=== PATIENT | male | born 1950 | race Two or more races ===

== ENCOUNTER → 2022-03-09 | Outpatient (CLI) | payer OTHER | END | disposition home or self-care (01) | LOC: RT 08:46 | PROVIDERS: ATTEND Internal Medicine Pulmonary Disease | DX: J44.9 Chronic obstructive pulmonary disease, unspecified (principal); F17.210 Nicotine dependence, cigarettes, uncomplicated | CPT/HCPCS: 94060; 94727; 94729 ==

== ENCOUNTER → 2022-03-30 | Outpatient (CLI) | payer OTHER ==
[2022-03-30 12:15] LABS: Basophils # (auto) 0.1 10 ^3/uL (0-0.2); Basophils % (auto) 1.5 % (0.0-2.0); Eosinophils # (auto) 0.1 10 ^3/uL (0-0.8); Eosinophils % (auto) 2.2 % (0.0-7.0); Hematocrit 44.2 % (41.0-53.0); Lymphocytes # (auto) 0.9 10 ^3/uL (0.4-5.4); Lymphocytes % (auto) 16.4 % (10.0-50.0); Mean Corpuscular Hemoglobin 32.9 pg (28.0-32.0); Mean Corpuscular Hgb Conc. 33.9 g/dL (32.0-36.0); Mean Corpuscular Volume 97.3 fL (80.0-100.0); Monocytes # (auto) 0.6 10 ^3/uL (0-1.3); Monocytes % (auto) 11.3 % (0.0-12.0); Neutrophils # (auto) 3.7 10 ^3/uL (1.6-8.6); Neutrophils % (auto) 68.6 % (37.0-80.0); Nucleated Red Blood Cells % 0.1 %; Red Blood Cells 4.55 10^6/uL (4.5-5.90); Red Cell Distribution Width 14.7 % (11.8-14.3); White Blood Cell 5.4 10^3/uL (4.4-10.8)
[2022-03-30 12:51] LABS: Potassium 3.9 mmol/L (3.5-5.1)
[2022-03-30 13:01] LABS: Albumin 3.2 g/dL (3.4-5.0); BUN/Creatinine Ratio 18.1; Bilirubin, Total 4.1 mg/dL (0.2-1.0); Calcium 8.7 mg/dL (8.5-10.1)
== END | disposition home or self-care (01) ==
LOC: LAB 11:53
PROVIDERS: ATTEND Internal Medicine
DX: E11.42 Type 2 diabetes mellitus with diabetic polyneuropathy (principal); K70.30 Alcoholic cirrhosis of liver without ascites; I10 Essential (primary) hypertension; K21.9 Gastro-esophageal reflux disease without esophagitis; N40.0 Benign prostatic hyperplasia without lower urinary tract symptoms
CPT/HCPCS: 36415; 80053; 80061; 83036; 84153; 84443; 85025

== ENCOUNTER → 2022-04-05 | Outpatient (CLI) | payer OTHER | END | disposition home or self-care (01) | LOC: LAB 11:35 | PROVIDERS: ATTEND Internal Medicine | DX: E11.42 Type 2 diabetes mellitus with diabetic polyneuropathy (principal); K70.30 Alcoholic cirrhosis of liver without ascites | CPT/HCPCS: 82270 ==

== ENCOUNTER → 2022-05-26 | Outpatient (CLI) | payer OTHER ==
[2022-05-26 12:24] LABS: Basophils # (auto) 0 10 ^3/uL (0-0.2); Eosinophils # (auto) 0.3 10 ^3/uL (0-0.8); Lymphocytes # (auto) 1.1 10 ^3/uL (0.4-5.4); Monocytes # (auto) 0.6 10 ^3/uL (0-1.3); Nucleated Red Blood Cells % 0.1 %
[2022-05-26 12:26] LABS: Eosinophils % (auto) 6.4 % (0.0-7.0); Hematocrit 44.7 % (41.0-53.0); Hemoglobin 15.2 g/dL (13.5-17.5); Lymphocytes % (auto) 22.6 % (10.0-50.0); Mean Corpuscular Hemoglobin 33.8 pg (28.0-32.0); Mean Corpuscular Hgb Conc. 34.1 g/dL (32.0-36.0); Mean Corpuscular Volume 99.1 fL (80.0-100.0); Monocytes % (auto) 11.6 % (0.0-12.0); Neutrophils # (auto) 2.8 10 ^3/uL (1.6-8.6); Neutrophils % (auto) 58.4 % (37.0-80.0); Red Blood Cells 4.51 10^6/uL (4.5-5.90); Red Cell Distribution Width 14.7 % (11.8-14.3); White Blood Cell 4.8 10^3/uL (4.4-10.8)
[2022-05-26 12:51] LABS: Albumin 3.2 g/dL (3.4-5.0); Calcium 8.5 mg/dL (8.5-10.1); Potassium 3.6 mmol/L (3.5-5.1)
[2022-05-26 12:52] LABS: BUN/Creatinine Ratio 19.7
[2022-05-26 12:54] LABS: Bilirubin, Total 3.2 mg/dL (0.2-1.0); Total Protein 6.4 g/dL (6.4-8.2)
[2022-05-26 13:48] LABS: INR 1.73 (0.9-1.15)
== END | disposition home or self-care (01) ==
LOC: LAB 11:58
PROVIDERS: ATTEND Internal Medicine Gastroenterology
DX: R94.5 Abnormal results of liver function studies (principal); K74.60 Unspecified cirrhosis of liver
CPT/HCPCS: 36415; 80053; 82105; 82728; 85025; 85610; 86038; 86803; 87340

== ENCOUNTER → 2022-05-31 | Outpatient (CLI) | payer OTHER | END | disposition home or self-care (01) | LOC: Rad HDHVI 15:46 | PROVIDERS: ATTEND Internal Medicine Cardiovascular Disease | DX: I10 Essential (primary) hypertension (principal); R00.2 Palpitations | CPT/HCPCS: 93306 ==

== ENCOUNTER → 2022-06-08 | Outpatient (CLI) | payer OTHER ==
[~2022-06-08] VITALS: Ht 182.9 cm; Wt 86.2 kg
[~2022-06-08] MED LIST: ADENOSINE 72 MG in GIVE UN-DILUTED 0 ML IV ONE; ADENOSINE 90 MG/30 ML INJ IV ONE
== END | disposition home or self-care (01) ==
LOC: Rad HDHVI 08:28
PROVIDERS: ATTEND Internal Medicine Cardiovascular Disease
DX: Z01.810 Encounter for preprocedural cardiovascular examination (principal); I10 Essential (primary) hypertension; E78.5 Hyperlipidemia, unspecified; R06.02 Shortness of breath; I25.2 Old myocardial infarction; R06.00 Dyspnea, unspecified; I35.0 Nonrheumatic aortic (valve) stenosis; R00.2 Palpitations; Z79.899 Other long term (current) drug therapy
CPT/HCPCS: 78452; 93005; 96374; 96375; A9500; J0153

== ENCOUNTER 2022-09-07 05:11 | Emergency (ER) | payer OTHER ==
[~2022-09-07] VITALS: Ht 182.9 cm; Wt 91.0 kg
[2022-09-07 06:17] LABS: Basophils # (auto) 0.1 10 ^3/uL (0-0.2); Hemoglobin 13.9 g/dL (13.5-17.5); Lymphocytes % (auto) 20.4 % (10.0-50.0); Monocytes # (auto) 0.9 10 ^3/uL (0-1.3); Neutrophils # (auto) 2.2 10 ^3/uL (1.6-8.6); White Blood Cell 4.8 10^3/uL (4.4-10.8)
[2022-09-07 06:20] LABS: Basophils % (auto) 2.5 % (0.0-2.0); Eosinophils # (auto) 0.6 10 ^3/uL (0-0.8); Eosinophils % (auto) 13.1 % (0.0-7.0); Hematocrit 38.7 % (41.0-53.0); Mean Corpuscular Hemoglobin 34.1 pg (28.0-32.0); Mean Corpuscular Hgb Conc. 35.9 g/dL (32.0-36.0); Monocytes % (auto) 17.8 % (0.0-12.0); Neutrophils % (auto) 46.2 % (37.0-80.0); Nucleated Red Blood Cells % 0.2 %; Red Blood Cells 4.08 10^6/uL (4.5-5.90); Red Cell Distribution Width 15.5 % (11.8-14.3)
[2022-09-07 06:49] LABS: Albumin 2.9 g/dL (3.4-5.0); BUN/Creatinine Ratio 18.8; Bilirubin, Total 3.9 mg/dL (0.2-1.0); Calcium 7.9 mg/dL (8.5-10.1); Potassium 3.6 mmol/L (3.5-5.1); Total Protein 5.4 g/dL (6.4-8.2)
[2022-09-07 12:15] VITALS: BP 127/63
== END 2022-09-07 12:18 | disposition home or self-care (01) ==
LOC: ER 05:11
DX: R22.43 Localized swelling, mass and lump, lower limb, bilateral (principal); K21.9 Gastro-esophageal reflux disease without esophagitis; N40.0 Benign prostatic hyperplasia without lower urinary tract symptoms
CPT/HCPCS: 36415; 71045; 80053; 83880; 84484; 85025; 93005; 93970

== ENCOUNTER → 2022-09-10 | Outpatient (CLI) | payer OTHER ==
[2022-09-10 11:03] LABS: BUN/Creatinine Ratio 19.6; Calcium 8.2 mg/dL (8.5-10.1); Potassium 3.7 mmol/L (3.5-5.1)
[2022-09-10 11:10] LABS: Micro Albumin 17.7 mg/L (0-30.0)
== END | disposition home or self-care (01) ==
LOC: LAB 09:51
PROVIDERS: ATTEND Internal Medicine
DX: E11.9 Type 2 diabetes mellitus without complications (principal); M17.10 Unilateral primary osteoarthritis, unspecified knee
CPT/HCPCS: 36415; 80048; 82043; 82570; 83036

== ENCOUNTER 2022-09-22 18:56 | Inpatient (IN) | payer OTHER ==
[~2022-09-22] VITALS: Ht 188 cm; Wt 82.9 kg
[2022-09-22 21:54] LABS: Hematocrit 38.4 % (41.0-53.0); Hemoglobin 13.8 g/dL (13.5-17.5); Mean Corpuscular Hemoglobin 34.3 pg (28.0-32.0); Mean Corpuscular Hgb Conc. 35.9 g/dL (32.0-36.0); Mean Corpuscular Volume 95.6 fL (80.0-100.0); Red Blood Cells 4.02 10^6/uL (4.5-5.90); Red Cell Distribution Width 15.8 % (11.8-14.3); White Blood Cell 6.2 10^3/uL (4.4-10.8)
[2022-09-22 21:56] LABS: Basophils % (manual) 0 (0.0-2.0); Blast Cells 0; Metamyelocytes % 0; Myelocytes % 0; Promyelocytes % 0; Reactive Lymphocytes 0
[2022-09-22 22:05] LABS: Albumin 2.8 g/dL (3.4-5.0); BUN/Creatinine Ratio 18.5 (10.0-20.0); Potassium 3.4 mmol/L (3.5-5.1)
[2022-09-22 22:07] LABS: Bilirubin, Total 4.1 mg/dL (0.2-1.0); Total Protein 5.7 g/dL (6.4-8.2)
[2022-09-22 22:55] LABS: Urine Bacteria NONE SEEN /hpf (None Seen); Urine Blood 3+ /uL (Negative); Urine Mucus FEW (None Seen); Urine Specific Gravity 1.009 (1.001-1.035); Urine WBC 11 /hpf (0 - 3); Urine WBC Clumps PRESENT /hpf (None Seen)
[2022-09-22 23:01] LABS: Band Neutrophils % (manual) 2; Eosinophils % (manual) 15 (0-7); Lymphocytes % (manual) 16 (10.0-50.0); Monocytes % (manual) 9 (0-12)
[2022-09-23] MEDS ORDERED: HYDROcodone-ACET 5/325MG TAB PO PRN
[2022-09-23] MEDS ORDERED: FUROSEMIDE 20 MG/2 ML VIAL IV ONE
[2022-09-23] MEDS ORDERED: MORPHINE SULFATE INJ 2 MG/ml SYRG IV PRN
[2022-09-23] MEDS ORDERED: ACETAMINOPHEN 325 MG TAB PO PRN
[2022-09-23] MEDS ORDERED: DOCUSATE SOD 100 MG CAP PO PRN
[2022-09-23] MEDS ORDERED: PANTOPRAZOLE 40 MG/10 ML VIAL INJ IV ONE (00:15)
[2022-09-23] MEDS ORDERED: LISI-716 PO (00:25)
[2022-09-23] MEDS ORDERED: TAMS0.4C36 PO (00:25)
[2022-09-23 00:40] LABS: INR 1.72 (0.9-1.15); Partial Thromboplastin Time 32.2 sec (24.6-33.4)
[2022-09-23 00:59] LABS: Alcohol, Urine < 3.0 mg/dL (0-10); Amphetamine Screen, Urine NEGATIVE (NEGATIVE); Barbiturate Scree,Urine NEGATIVE (NEGATIVE); Benzodiazephine Screen, Urine NEGATIVE (NEGATIVE); Cannabinoid Screen, Urine NEGATIVE (NEGATIVE); Cocaine Screen, Urine NEGATIVE (NEGATIVE); Opiate Scree,Urine NEGATIVE (NEGATIVE); Phencyclidine Screen, Urine NEGATIVE (NEGATIVE)
[2022-09-23 01:18] LABS: Cholesterol 108 mg/dL (< 200); HDL Cholesterol 45 mg/dL (40-59); LDL Cholesterol 46 mg/dL (< 100); Triglycerides 127 mg/dL (< 150)
[2022-09-23 08:00] LABS: Hemoglobin 14.7 g/dL (13.5-17.5); Red Cell Distribution Width 15.7 % (11.8-14.3); White Blood Cell 6.5 10^3/uL (4.4-10.8)
[2022-09-23 08:02] LABS: Hematocrit 41.6 % (41.0-53.0); Mean Corpuscular Hemoglobin 34.2 pg (28.0-32.0); Mean Corpuscular Hgb Conc. 35.2 g/dL (32.0-36.0); Mean Corpuscular Volume 97.3 fL (80.0-100.0); Red Blood Cells 4.28 10^6/uL (4.5-5.90)
[2022-09-23 08:16] LABS: Band Neutrophils % (manual) 0; Basophils % (manual) 0 (0.0-2.0); Blast Cells 0; Myelocytes % 0; Promyelocytes % 0; Reactive Lymphocytes 0
[2022-09-23 08:43] LABS: Anion Gap 6 (5-15); Blood Urea Nitrogen 9 mg/dL (7-18); Carbon Dioxide 23 mmol/L (21-32); Chloride 112 mmol/L (98-107); Glucose 83 mg/dL (74-106); Potassium 3.4 mmol/L (3.5-5.1); Sodium 141 mmol/L (136-145)
[2022-09-23 08:44] LABS: Alanine Aminotransferase 50 U/L (16-61); Alkaline Phosphatase 193 U/L (45-117); Aspartate Aminotransferase 60 U/L (15-37); BUN/Creatinine Ratio 15.8 (10.0-20.0); Bilirubin, Total 4.4 mg/dL (0.2-1.0); GFR African American 182 mL/min; GFR Non-African American 150 mL/min
[2022-09-23 08:45] LABS: Albumin 3.1 g/dL (3.4-5.0)
[2022-09-23 09:00] LABS: Eosinophils % (manual) 20 (0-7); Lymphocytes % (manual) 19 (10.0-50.0); Metamyelocytes % 1; Monocytes % (manual) 6 (0-12)
[2022-09-23 09:28] LABS: Hepatitis B Surface Antibody Negative (Negative)
[2022-09-23] MEDS: FUROSEMIDE 20 MG/2 ML VIAL IV SCH (09:39)
[2022-09-23] MEDS: PANTOPRAZOLE 40 MG/10 ML VIAL INJ IV SCH (09:39)
[2022-09-23] MEDS: POTASSIUM EFFERVESENT TAB 25 MEQ PO SCH (09:39)
[2022-09-23] MEDS ORDERED: ENOXAPARIN SOD 40 MG/0.4 ML SYRINGE SC SCH (10:00)
[2022-09-23 10:04] LABS: Hepatitis A Total Antibody Negative (Negative)
[2022-09-23 11:34] LABS: Hepatitis C Antibody Positive (Negative)
[2022-09-23 14:32] VITALS: BP 145/92
[2022-09-23 22:00] VITALS: BP 123/66
[2022-09-24 05:05] VITALS: BP 105/61
[2022-09-24 07:04] LABS: Hematocrit 36.3 % (41.0-53.0); Mean Corpuscular Hemoglobin 34.6 pg (28.0-32.0); Mean Corpuscular Hgb Conc. 35.8 g/dL (32.0-36.0); Mean Corpuscular Volume 96.7 fL (80.0-100.0); Red Blood Cells 3.76 10^6/uL (4.5-5.90); Red Cell Distribution Width 15.1 % (11.8-14.3); White Blood Cell 5.6 10^3/uL (4.4-10.8)
[2022-09-24 07:08] LABS: Basophils % (manual) 0 (0.0-2.0); Blast Cells 0; Metamyelocytes % 0; Myelocytes % 0; Promyelocytes % 0; Reactive Lymphocytes 0
[2022-09-24 07:22] LABS: Albumin 2.3 g/dL (3.4-5.0); Potassium 3.4 mmol/L (3.5-5.1)
[2022-09-24 07:26] LABS: BUN/Creatinine Ratio 16.7 (10.0-20.0); Bilirubin, Total 5.6 mg/dL (0.2-1.0); Total Protein 4.7 g/dL (6.4-8.2)
[2022-09-24 09:00] VITALS: BP 118/63
[2022-09-24 09:14] LABS: Band Neutrophils % (manual) 2; Eosinophils % (manual) 15 (0-7); Lymphocytes % (manual) 19 (10.0-50.0); Monocytes % (manual) 10 (0-12)
[2022-09-24] MEDS: FUROSEMIDE 20 MG/2 ML VIAL IV SCH (10:14)
[2022-09-24] MEDS: PANTOPRAZOLE 40 MG/10 ML VIAL INJ IV SCH (10:14)
[2022-09-24] MEDS: POTASSIUM EFFERVESENT TAB 25 MEQ PO SCH (10:14)
[2022-09-24 13:00] VITALS: BP 124/82
[2022-09-24] MEDS ORDERED: POTASSIUM CHL 20 Meq TABLET PO ONE (16:00)
[2022-09-24 16:26] VITALS: BP 118/63
[2022-09-24 17:00] VITALS: BP 122/79
== END 2022-09-24 18:42 | disposition home or self-care (01) | DRG 393 ==
LOC: ER 18:56 → OVERFLOW 23:55 → WEST WING 09-23 14:42
PROVIDERS: ADMIT Registered Nurse; ATTEND Internal Medicine
DX: K40.90 Unilateral inguinal hernia, without obstruction or gangrene, not specified as recurrent (principal); E43 Unspecified severe protein-calorie malnutrition; D68.9 Coagulation defect, unspecified; B19.20 Unspecified viral hepatitis C without hepatic coma; K70.31 Alcoholic cirrhosis of liver with ascites; D69.6 Thrombocytopenia, unspecified; I10 Essential (primary) hypertension; E66.01 Morbid (severe) obesity due to excess calories; N40.0 Benign prostatic hyperplasia without lower urinary tract symptoms; Z20.822 Contact with and (suspected) exposure to COVID-19; K21.9 Gastro-esophageal reflux disease without esophagitis; Z68.23 Body mass index [BMI] 23.0-23.9, adult
CPT/HCPCS: 36415; 74176; 76705; 80053; 80061; 80307; 80320; 81001; 82140; 83605; 83690; 83880; 84443; 84484; 85007; 85027; 85610; 85730; 86704; 86706; 86708; 86803; 87086; 87340; 87426; 93926; 93970; C9113; G0378

== ENCOUNTER → 2022-10-05 | Outpatient (CLI) | payer MEDICARE ==
[~2022-10-05] MED LIST changes: -ADENOSINE 72 MG in GIVE UN-DILUTED 0 ML IV ONE; -ADENOSINE 90 MG/30 ML INJ IV ONE; +LISI-716 PO; +TAMS0.4C36 PO
[2022-10-05 15:01] LABS: Basophils # (auto) 0.2 10 ^3/uL (0-0.2); Basophils % (auto) 3.6 % (0.0-2.0); Eosinophils # (auto) 0.4 10 ^3/uL (0-0.8); Eosinophils % (auto) 7.2 % (0.0-7.0); Hematocrit 42.9 % (41.0-53.0); Hemoglobin 15.2 g/dL (13.5-17.5); Lymphocytes # (auto) 0.9 10 ^3/uL (0.4-5.4); Lymphocytes % (auto) 15.5 % (10.0-50.0); Mean Corpuscular Hgb Conc. 35.3 g/dL (32.0-36.0); Mean Corpuscular Volume 96.2 fL (80.0-100.0); Monocytes # (auto) 0.6 10 ^3/uL (0-1.3); Monocytes % (auto) 10.9 % (0.0-12.0); Neutrophils # (auto) 3.6 10 ^3/uL (1.6-8.6); Neutrophils % (auto) 62.8 % (37.0-80.0); Nucleated Red Blood Cells % 0.1 %; Red Blood Cells 4.46 10^6/uL (4.5-5.90); Red Cell Distribution Width 14.8 % (11.8-14.3); White Blood Cell 5.7 10^3/uL (4.4-10.8)
[2022-10-05 15:43] LABS: INR 1.89 (0.9-1.15)
[2022-10-05 15:53] LABS: Albumin 3.1 g/dL (3.4-5.0); Calcium 8.6 mg/dL (8.5-10.1); Potassium 3.7 mmol/L (3.5-5.1)
[2022-10-05 15:57] LABS: BUN/Creatinine Ratio 11.1 (10.0-20.0); Bilirubin, Total 4.5 mg/dL (0.2-1.0); Total Protein 6.3 g/dL (6.4-8.2)
== END | disposition home or self-care (01) ==
LOC: LAB 14:26
PROVIDERS: ATTEND Specialist
DX: D69.6 Thrombocytopenia, unspecified (principal); D68.9 Coagulation defect, unspecified
CPT/HCPCS: 36415; 80053; 85025; 85379; 85384; 85610; 85730; 86706; 86803

== ENCOUNTER 2022-10-20 12:50 | Day surgery (SDC) | payer MEDICARE, OTHER ==
[2022-10-18 12:23] LABS: Basophils # (auto) 0.1 10 ^3/uL (0-0.2); Basophils % (auto) 2.9 % (0.0-2.0); Eosinophils # (auto) 0.4 10 ^3/uL (0-0.8); Eosinophils % (auto) 8.9 % (0.0-7.0); Hematocrit 41.8 % (41.0-53.0); Hemoglobin 14.5 g/dL (13.5-17.5); Lymphocytes # (auto) 0.8 10 ^3/uL (0.4-5.4); Mean Corpuscular Hemoglobin 33.4 pg (28.0-32.0); Mean Corpuscular Hgb Conc. 34.6 g/dL (32.0-36.0); Mean Corpuscular Volume 96.6 fL (80.0-100.0); Monocytes # (auto) 0.6 10 ^3/uL (0-1.3); Monocytes % (auto) 12.5 % (0.0-12.0); Neutrophils # (auto) 2.7 10 ^3/uL (1.6-8.6); Neutrophils % (auto) 58.7 % (37.0-80.0); Red Blood Cells 4.33 10^6/uL (4.5-5.90); White Blood Cell 4.6 10^3/uL (4.4-10.8)
[2022-10-18 12:39] LABS: INR 1.74 (0.9-1.15); Partial Thromboplastin Time 33.3 sec (24.6-33.4)
[2022-10-18 12:47] LABS: Albumin 2.7 g/dL (3.4-5.0)
[2022-10-18 12:49] LABS: BUN/Creatinine Ratio 17.4 (10.0-20.0); Calcium 8.6 mg/dL (8.5-10.1)
[2022-10-18 13:06] LABS: Bilirubin, Total 3.4 mg/dL (0.2-1.0); Total Protein 5.9 g/dL (6.4-8.2)
[~2022-10-20] VITALS: Ht 182.9 cm; Wt 86.2 kg
[~2022-10-20 12:50] MED LIST changes: +ACET1CAP14 PO; +FURO1TAB33 PO; -LISI-716 PO; +OMEP20TA PO; +POTA10TA51 PO
[2022-10-20] MEDS ORDERED: LIDOCAINE VISCOUS 2% 15ML UD ONE (12:52)
[2022-10-20] MEDS ORDERED: MIDAZOLAM HCL 2MG/2ML 2ml VIAL (1mg/ml) ONE (12:54)
[2022-10-20] MEDS: diphenhdrAMINE HCL 50 MG/1 ML VL ONE ×2 (15:44→15:45)
[2022-10-20] MEDS: fentaNYL CITRATE 100 MCG/2 ML VL ONE ×3 (15:44→15:50)
[2022-10-20] MEDS: MIDAZOLAM HCL 2MG/2ML 2ml VIAL (1mg/ml) ONE ×3 (15:44→15:50)
[2022-10-20 16:35] VITALS: BP 114/68
== END 2022-10-20 16:46 | disposition home or self-care (01) ==
LOC: GI 12:50
PROVIDERS: ATTEND Internal Medicine Gastroenterology
DX: R10.9 Unspecified abdominal pain (principal); K29.50 Unspecified chronic gastritis without bleeding; K76.6 Portal hypertension; K31.89 Other diseases of stomach and duodenum; K27.9 Peptic ulcer, site unspecified, unspecified as acute or chronic, without hemorrhage or perforation; K44.9 Diaphragmatic hernia without obstruction or gangrene; E11.9 Type 2 diabetes mellitus without complications; Z79.899 Other long term (current) drug therapy; Z98.890 Other specified postprocedural states
CPT/HCPCS: 36415; 43239; 80053; 85025; 85610; 85730; 88305; 88312; 88313; 88342; 99152; J1200; J2250; J3010; J7030

== ENCOUNTER → 2022-12-16 | Outpatient (CLI) | payer OTHER ==
[2022-12-16 09:15] LABS: Hematocrit 39.6 % (41.0-53.0); Hemoglobin 13.9 g/dL (13.5-17.5); Mean Corpuscular Volume 97.2 fL (80.0-100.0); Red Blood Cells 4.07 10^6/uL (4.5-5.90); White Blood Cell 4.7 10^3/uL (4.4-10.8)
[2022-12-16 09:25] LABS: Basophils % (manual) 0 (0.0-2.0); Blast Cells 0; Metamyelocytes % 0; Myelocytes % 0; Promyelocytes % 0
[2022-12-16 09:51] LABS: INR 1.84 (0.9-1.15)
[2022-12-16 10:14] LABS: Albumin 3.1 g/dL (3.4-5.0); Potassium 4.1 mmol/L (3.5-5.1)
[2022-12-16 10:17] LABS: BUN/Creatinine Ratio 22.1 (10.0-20.0); Total Protein 6.4 g/dL (6.4-8.2)
[2022-12-16 10:55] LABS: Band Neutrophils % (manual) 1; Eosinophils % (manual) 17 (0-7); Lymphocytes % (manual) 18 (10.0-50.0); Reactive Lymphocytes 2
[2022-12-16 10:56] LABS: Monocytes % (manual) 11 (0-12)
== END | disposition home or self-care (01) ==
LOC: LAB 08:53
PROVIDERS: ATTEND Internal Medicine Gastroenterology
DX: B18.2 Chronic viral hepatitis C (principal); K74.60 Unspecified cirrhosis of liver
CPT/HCPCS: 36415; 80053; 82105; 85007; 85027; 85610

== ENCOUNTER → 2023-02-04 | Outpatient (CLI) | payer OTHER ==
[2023-02-04 09:57] LABS: INR 2.02 (0.9-1.15); Partial Thromboplastin Time 32.3 SEC (24.5-34.5)
[2023-02-04 09:58] LABS: Basophils # (auto) 0.1 10 ^3/uL (0-0.2); Eosinophils # (auto) 0.5 10 ^3/uL (0-0.8); Hemoglobin 13.6 g/dL (13.5-17.5); Mean Corpuscular Volume 102.5 fL (80.0-100.0); White Blood Cell 3.9 10^3/uL (4.4-10.8)
[2023-02-04 10:01] LABS: Basophils % (auto) 1.4 % (0.0-2.0); Eosinophils % (auto) 13.9 % (0.0-7.0); Hematocrit 39.4 % (41.0-53.0); Lymphocytes # (auto) 0.6 10 ^3/uL (0.4-5.4); Lymphocytes % (auto) 16.5 % (10.0-50.0); Mean Corpuscular Hemoglobin 35.3 pg (28.0-32.0); Mean Corpuscular Hgb Conc. 34.4 g/dL (32.0-36.0); Monocytes # (auto) 0.5 10 ^3/uL (0-1.3); Monocytes % (auto) 13.6 % (0.0-12.0); Neutrophils # (auto) 2.1 10 ^3/uL (1.6-8.6); Neutrophils % (auto) 54.6 % (37.0-80.0); Nucleated Red Blood Cells % 0.1 %; Red Blood Cells 3.84 10^6/uL (4.5-5.90)
[2023-02-04 10:06] LABS: Potassium 4.9 mmol/L (3.5-5.1)
[2023-02-04 10:13] LABS: BUN/Creatinine Ratio 15.1 (10.0-20.0); Bilirubin, Total 2.5 mg/dL (0.2-1.0); Calcium 8.5 mg/dL (8.5-10.1); Total Protein 6.3 g/dL (6.4-8.2)
== END | disposition home or self-care (01) ==
LOC: LAB 09:22
PROVIDERS: ATTEND Specialist
DX: D68.9 Coagulation defect, unspecified (principal)
CPT/HCPCS: 36415; 80053; 85025; 85610; 85730

== ENCOUNTER → 2023-05-10 | Outpatient (CLI) | payer OTHER ==
[2023-05-10 13:19] LABS: Basophils # (auto) 0.1 10 ^3/uL (0-0.2); Eosinophils # (auto) 0.4 10 ^3/uL (0-0.8); Hemoglobin 12.9 g/dL (13.5-17.5); Lymphocytes # (auto) 0.8 10 ^3/uL (0.4-5.4); Monocytes # (auto) 0.5 10 ^3/uL (0-1.3); Neutrophils % (auto) 61.7 % (37.0-80.0); Nucleated Red Blood Cells % 0.1 %; White Blood Cell 4.6 10^3/uL (4.4-10.8)
[2023-05-10 13:21] LABS: Basophils % (auto) 1.4 % (0.0-2.0); Eosinophils % (auto) 8.1 % (0.0-7.0); Hematocrit 37.5 % (41.0-53.0); Mean Corpuscular Hemoglobin 34.8 pg (28.0-32.0); Mean Corpuscular Hgb Conc. 34.3 g/dL (32.0-36.0); Mean Corpuscular Volume 101.4 fL (80.0-100.0); Monocytes % (auto) 11.8 % (0.0-12.0); Neutrophils # (auto) 2.8 10 ^3/uL (1.6-8.6); Red Cell Distribution Width 14.4 % (11.8-14.3)
[2023-05-10 13:29] LABS: Urine Bacteria NONE SEEN /hpf (None Seen); Urine Blood 2+ /uL (Negative); Urine Clarity Clear (Clear); Urine Color Yellow (Yellow); Urine Protein, UAD Negative (Negative); Urine Specific Gravity 1.007 (1.001-1.035); Urine Urobilinogen Normal (Negative); Urine WBC 7 /hpf (0 - 3); Urine pH 5.5 (5.0-8.0)
[2023-05-10 13:35] LABS: Creatinine, Urine 49.7 mg/dL (30.0-125.0)
[2023-05-10 14:54] LABS: Prostate Specific Antigen 3.33 ng/mL (0.0-4.0)
[2023-05-10 14:56] LABS: Alanine Aminotransferase 54 U/L (7-40); Albumin 3.1 g/dL (3.2-4.8); Alkaline Phosphatase 139 U/L (46-116); Anion Gap 7 (5-15); Aspartate Aminotransferase 55 U/L (13-40); BUN/Creatinine Ratio 11.3 (10.0-20.0); Bilirubin, Total 4.1 mg/dL (0.2-1.0); Blood Urea Nitrogen 8 mg/dL (9-23); Calcium 8.8 mg/dL (8.5-10.1); Carbon Dioxide 23 mmol/L (20-30); Chloride 101 mmol/L (98-107); Cholesterol 124 mg/dL (< 200); Glucose 79 mg/dL (74-106); HDL Cholesterol 56 mg/dL (40-59); LDL Cholesterol 48 mg/dL (< 100); Potassium 4.3 mmol/L (3.5-5.1); Sodium 131 mmol/L (136-145); Total Protein 5.6 g/dL (5.7-8.2); Triglycerides 62 mg/dL (< 150)
[2023-05-10 14:57] LABS: Free T4 (Free Thyroxine) 0.74 ng/dL (0.89-1.76)
== END | disposition home or self-care (01) ==
LOC: LAB 12:55
PROVIDERS: ATTEND Internal Medicine
DX: Z12.5 Encounter for screening for malignant neoplasm of prostate (principal); Z00.01 Encounter for general adult medical examination with abnormal findings; E11.42 Type 2 diabetes mellitus with diabetic polyneuropathy; E87.6 Hypokalemia; I10 Essential (primary) hypertension
CPT/HCPCS: 36415; 80053; 80061; 81001; 82043; 82306; 82570; 83036; 84153; 84439; 84443; 85025

== ENCOUNTER → 2023-05-16 | Outpatient (CLI) | payer OTHER ==
[2023-05-16 12:23] LABS: Eosinophils # (auto) 0.6 10 ^3/uL (0-0.8); Hemoglobin 12.7 g/dL (13.5-17.5); Lymphocytes # (auto) 0.8 10 ^3/uL (0.4-5.4); Monocytes # (auto) 0.6 10 ^3/uL (0-1.3); Neutrophils # (auto) 2.1 10 ^3/uL (1.6-8.6); Red Cell Distribution Width 15.2 % (11.8-14.3)
[2023-05-16 12:25] LABS: Basophils # (auto) 0 10 ^3/uL (0-0.2); Basophils % (auto) 0.9 % (0.0-2.0); Eosinophils % (auto) 14.6 % (0.0-7.0); Hematocrit 36.6 % (41.0-53.0); Lymphocytes % (auto) 19.3 % (10.0-50.0); Mean Corpuscular Hemoglobin 35.4 pg (28.0-32.0); Mean Corpuscular Hgb Conc. 34.8 g/dL (32.0-36.0); Mean Corpuscular Volume 101.8 fL (80.0-100.0); Neutrophils % (auto) 50.2 % (37.0-80.0); White Blood Cell 4.2 10^3/uL (4.4-10.8)
[2023-05-16 13:00] LABS: Alanine Aminotransferase 53 U/L (7-40); Alkaline Phosphatase 129 U/L (46-116); Anion Gap 6 (5-15); Aspartate Aminotransferase 58 U/L (13-40); BUN/Creatinine Ratio 14.7 (10.0-20.0); Bilirubin, Total 4.4 mg/dL (0.2-1.0); Blood Urea Nitrogen 10 mg/dL (9-23); Calcium 8.9 mg/dL (8.5-10.1); Carbon Dioxide 25 mmol/L (20-30); Chloride 106 mmol/L (98-107); Glucose 81 mg/dL (74-106); Potassium 4.4 mmol/L (3.5-5.1); Sodium 137 mmol/L (136-145); Total Protein 5.4 g/dL (5.7-8.2)
== END | disposition home or self-care (01) ==
LOC: LAB 11:57
PROVIDERS: ATTEND Nurse Practitioner Adult Health
DX: D68.9 Coagulation defect, unspecified (principal); D59.6 Hemoglobinuria due to hemolysis from other external causes
CPT/HCPCS: 36415; 80053; 85025

== ENCOUNTER → 2023-08-10 | Outpatient (CLI) | payer OTHER ==
[2023-08-10 12:31] LABS: Basophils # (auto) 0.1 10 ^3/uL (0-0.2); Basophils % (auto) 1.6 % (0.0-2.0); Eosinophils # (auto) 0.7 10 ^3/uL (0-0.8); Eosinophils % (auto) 12.6 % (0.0-7.0); Hematocrit 38.7 % (41.0-53.0); Lymphocytes # (auto) 0.9 10 ^3/uL (0.4-5.4); Lymphocytes % (auto) 17.4 % (10.0-50.0); Mean Corpuscular Hemoglobin 34.4 pg (28.0-32.0); Mean Corpuscular Hgb Conc. 33.6 g/dL (32.0-36.0); Mean Corpuscular Volume 102.3 fL (80.0-100.0); Monocytes # (auto) 0.5 10 ^3/uL (0-1.3); Monocytes % (auto) 10.3 % (0.0-12.0); Neutrophils # (auto) 3.1 10 ^3/uL (1.6-8.6); Neutrophils % (auto) 58.1 % (37.0-80.0); Red Blood Cells 3.78 10^6/uL (4.5-5.90); Red Cell Distribution Width 15.9 % (11.8-14.3); White Blood Cell 5.3 10^3/uL (4.4-10.8)
[2023-08-10 12:53] LABS: Urine Bacteria NONE SEEN /hpf (None Seen); Urine Blood 2+ /uL (Negative); Urine Clarity HAZY (Clear); Urine Color Yellow (Yellow); Urine Mucus FEW (None Seen); Urine Protein, UAD TRACE (Negative); Urine Specific Gravity 1.016 (1.001-1.035); Urine WBC 40 /hpf (0 - 3)
[2023-08-10 12:57] LABS: Alanine Aminotransferase 51 U/L (7-40); Albumin 3.1 g/dL (3.2-4.8); Alkaline Phosphatase 212 U/L (46-116); Anion Gap 7 (5-15); Aspartate Aminotransferase 68 U/L (13-40); BUN/Creatinine Ratio 14.7 (10.0-20.0); Blood Urea Nitrogen 10 mg/dL (9-23); Calcium 8.8 mg/dL (8.5-10.1); Carbon Dioxide 24 mmol/L (20-30); Chloride 108 mmol/L (98-107); Cholesterol 129 mg/dL (< 200); Glucose 80 mg/dL (74-106); HDL Cholesterol 57 mg/dL (40-59); LDL Cholesterol 46 mg/dL (< 100); Potassium 3.8 mmol/L (3.5-5.1); Sodium 139 mmol/L (136-145); Triglycerides 68 mg/dL (< 150)
[2023-08-10 12:58] LABS: Bilirubin, Total 2.8 mg/dL (0.2-1.0); Total Protein 5.8 g/dL (5.7-8.2)
[2023-08-10 13:12] LABS: Magnesium 1.7 mg/dL (1.6-2.6)
[2023-08-10 14:14] LABS: Free T3 2.54 pg/mL (2.3-4.2); Free T4 (Free Thyroxine) 0.73 ng/dL (0.89-1.76)
== END | disposition home or self-care (01) ==
LOC: LAB 12:15
PROVIDERS: ATTEND Nurse Practitioner Gerontology
DX: E11.42 Type 2 diabetes mellitus with diabetic polyneuropathy (principal); D64.9 Anemia, unspecified; E88.09 Other disorders of plasma-protein metabolism, not elsewhere classified; R31.29 Other microscopic hematuria
CPT/HCPCS: 36415; 80053; 80061; 81001; 83036; 83735; 84439; 84443; 84481; 85025

== ENCOUNTER → 2023-08-15 | Outpatient (CLI) | payer OTHER | END | disposition home or self-care (01) | LOC: LAB 14:21 | PROVIDERS: ATTEND Nurse Practitioner Gerontology | DX: E11.42 Type 2 diabetes mellitus with diabetic polyneuropathy (principal); D64.9 Anemia, unspecified; E88.09 Other disorders of plasma-protein metabolism, not elsewhere classified; R31.29 Other microscopic hematuria | CPT/HCPCS: 82274 ==

== ENCOUNTER 2024-05-10 14:58 | Emergency (ER) | payer OTHER ==
[~2024-05-10] VITALS: Ht 180.3 cm; Wt 82.1 kg
[~2024-05-10 14:58] MED LIST changes: +POTA-36 PO; -POTA10TA51 PO; -TAMS0.4C36 PO; +TAMS0.4C39 PO
--- NOTE | 2024-05-10 15:48 | ED.PDOC ---
GI ASSESSMENT HPI Comments 73y M who presents to the ED for chief complaint of hemoptysis. Pt states he was going to PCP appt and states he started to feel this sensation in his throat states he felt some blood in his vomit and called his PCP and was referred to the ED for further evaluation. Pt states he has history of liver disase and esophageal varies and has recieved liver transplant. Pt now in the ED, otherwise denies nausea, vomiting, diarrhea, fever, cough, chills, dysuria, chest pain, or shortness of breath. Pt not actively coughing up blood in the ED. Pt otherwise denies any other symptoms at this time. Vital signs were stable on arrival Chief Complaint: hemoptysis Time Seen by MD: 15:46 Primary Care Provider: PR Reviewed Notes: Nurses Notes, Medications, Allergies Allergies: Coded Allergies: NO KNOWN ALLERGIES (Unverified , 06/08/22) Home Meds Reported Medications Acetaminophen (Tylenol) 325 Mg Cap, 325 MG PO PRN, CAP 10/19/22 Omeprazole (Gnp Omeprazole) 20 Mg Tab, 40 MG PO DAILY, TAB 10/19/22 Potassium Chloride (POTASSIUM CHLORIDE CR) 10 Meq Tb, 10 MEQ PO DAILY, TAB 10/19/22 Furosemide (Lasix) 20 Mg Tb, 20 MG PO DAILY, TAB 10/19/22 Tamsulosin Hcl (Tamsulosin Hcl) 0.4 Mg Cap, 1 CAP PO DAILY 09/23/22 Information Source: Patient Mode of Arrival: Ambulatory Brought in by: self Timing: Hours Duration: Minutes Prehospital treatment: None Quality: None Vomitus: Bilious, Food Particles, Watery, Bloody, Bright Red Bood Severity: Moderate Recent: None Recent Hx of: Other (Liver transplant, history of esophageal varices) Pain Location: None Modifying Factors: Nothing Associated sign and symptoms: Nausea, Hematemesis Past Medical History PAST MEDICAL HISTORY: GERD Past Medical History (Other): liver transplant, esophageal varices Surgical History: Hernia Repair Surgical History (Other): liver transplant Family History Family History: Unknown Social History Smoker: Non-Smoker Alcohol: Denies ETOH Use Drugs: Denies Drug Use Lives In: Home Constitutional: denies: chills, diaphoresis, fatigue, fever, malaise, sweats, weakness, others EENTM: denies: blurred vision, double vision, ear bleeding, ear discharge, ear drainage, ear pain, ear ringing, eye pain, eye redness, hearing loss, mouth pain, mouth swelling, nasal discharge, nose bleeding, nose congestion, nose pain, photophobia, tearing, throat pain, throat swelling, voice changes, others Respiratory: reports: hemoptysis; denies: cough, orthopnea, SOB at rest, shortness of breath, SOB with excertion, stridor, wheezing, others Cardiovascular: denies: chest pain, dizzy spells, diaphoresis, Dyspnea on exertion, edema, irregular heart beat, left arm pain, lightheadedness, palpitations, PND, syncope, others Gastrointestinal: denies: abdomen distended, abdominal pain, blood streaked bowels, constipated, diarrhea, dysphagia, difficulty swallowing, hematemesis, melena, nausea, poor appetite, poor fluid intake, rectal bleeding, rectal pain, vomiting, others Genitourinary: denies: burning, dysuria, flank pain, frequency, hematuria, incontinence, penile discharge, penile sore, pain, testicle pain, testicle swelling, urgency, others Neurological: denies: dizziness, fainting, headache, left sided numbness, left sided weakness, numbness, paresthesia, pre-existing deficit, right sided numbness, right sided weakness, seizure, speech problems, tingling, tremors, weakness, others Musculoskeletal: denies: back pain, gout, joint pain, joint swelling, muscle pain, muscle stiffness, neck pain, others Integumetry: denies: bruises, change in color, change in hair/nails, dryness, laceration, lesions, lumps, rash, wounds, others Allergic/Immunocompromised: denies: Difficulty Healing, Frequent Infections, Hives, Itching, others Hematologic/Lymphatic: denies: anemia, blood clots, easy bleeding, easy bruising, swollen glands, others Endocrine: denies: excessive hunger, excessive sweating, excessive thirst, excessive urination, flushing, intolerance to cold, intolerance to heat, unexplained weight gain, unexplained weight loss, others Psychiatric: denies: anxiety, bipolar disorder, depression, hopeless, panic disorder, schizophrenia, sleepless, suicidal, others All Other Systems: Reviewed and Negative Physical Exam General Appearance: No Apparent Distress (Patient was in no distress at time of evaluation.), Normal HEENT: Normal ENT Inspection, Pharynx Normal, TMs Normal Neck: Full Range of Motion, Non-Tender, Normal, Normal Inspection Respiratory: Chest Non-Tender, Lungs Clear, No Accessory Muscle Use, No Respiratory Distress, Normal Breath Sounds Cardiovascular: No Edema, No JVD, No Murmur, No Gallop, Normal Peripheral Pulses, Regular Rate/Rhythm Breast Exam: Deferred Gastrointestinal: No Organomegaly, Non Tender, No Pulsatile Mass, Normal Bowel Sounds, Soft, Other (Unremarkable evaluation of abdomen.) Genitalia: Deferred Pelvic: Deferred Rectal: Deferred Extremities: No calf tenderness, Normal capillary refill, Normal inspection, Normal range of motion, Non-tender, No pedal edema Neurologic: Alert, pulling unit operator II-XII nml as Tested, No Motor Deficits, Normal Affect, Normal Mood, No Sensory Deficits Cerebellar Function: Normal Reflexes: Normal Skin: Dry, Normal Color, Warm Lymphatic: No Adenopathy Was a procedure done? Was a procedure done?: No GI differential Dx Differential Diagnosis: Esophagitis, GI hemorrhage, Pancreatitis, Dehydration, Anemia, Esophageal Varicies X-Ray, Labs, Meds, VS Vital Signs Date Time Temp Pulse Resp B/P (MAP) Pulse Ox O2 Delivery O2 Flow Rate FiO2 05/10/24 17:10 77 18 120/75 (90) 96 05/10/24 15:14 97.4 82 20 125/74 (91) 96 Lab Test 05/10/24 15:44 Range/Units White Blood Count 8.5 4.4-10.8 10^3/uL Red Blood Count 4.67 4.5-5.90 10^6/uL Hemoglobin 14.2 13.5-17.5 g/dL Hematocrit 39.9 L 41.0-53.0 % Mean Corpuscular Volume 85.4 80.0-100.0 fL Mean Corpuscular Hemoglobin 30.5 28.0-32.0 pg Mean Corpuscular Hemoglobin Concent 35.7 32.0-36.0 g/dL Red Cell Distribution Width 13.9 11.8-14.3 % Platelet Count 192 140-450 10^3/uL Mean Platelet Volume 8.5 6.9-10.8 fL Neutrophils (%) (Auto) 72.8 37.0-80.0 % Lymphocytes (%) (Auto) 11.5 10.0-50.0 % Monocytes (%) (Auto) 8.8 0.0-12.0 % Eosinophils (%) (Auto) 5.9 0.0-7.0 % Basophils (%) (Auto) 1.0 0.0-2.0 % Neutrophils # (Auto) 6.2 1.6-8.6 10 ^3/uL Lymphocytes # (Auto) 1.0 0.4-5.4 10 ^3/uL Monocytes # (Auto) 0.8 0-1.3 10 ^3/uL Eosinophils # (Auto) 0.5 0-0.8 10 ^3/uL Basophils # (Auto) 0.1 0-0.2 10 ^3/uL Nucleated Red Blood Cells 0.1 % Sodium Level 144 136-145 mmol/L Potassium Level 4.3 3.5-5.1 mmol/L Chloride Level 109 H 98-107 mmol/L Carbon Dioxide Level 28 20-31 mmol/L Anion Gap 7 5-15 Blood Urea Nitrogen 23 9-23 mg/dL Creatinine 1.26 0.700-1.30 mg/dL Glomerular Filtration Rate Calc 61 >90 mL/min BUN/Creatinine Ratio 18.3 10.0-20.0 Serum Glucose 149 H 74-106 mg/dL Calcium Level 10.0 8.7-10.4 mg/dL Total Bilirubin 0.6 0.2-1.0 mg/dL Aspartate Amino Transferase (AST) 18 13-40 U/L Alanine Aminotransferase (ALT) 26 7-40 U/L Alkaline Phosphatase 87 46-116 U/L Total Protein 7.1 5.7-8.2 g/dL Albumin 4.7 3.2-4.8 g/dL X-Ray, Labs, Meds, VS Comment All studies performed in the ED today were evaluated by me personally. Laboratories were unremarkable for any acute process or anemia. CT chest, pelvis revealed minimal periesophageal, perigastric and perisplenic varices, multiple bilateral nonobstructing renal stones were noted. Moderate prostatomegaly which the patient is aware of. Patient appears to have had a variceal bleeding event that has currently resolved. Advised patient continue follow up with his primary care provider and regional ehs manager for continued management of his liver related concerns. Time of 1ST Reevaluation: 19:24 Reevaluation 1ST: Improved Consultation: PCP, Other (Hepatology) Patient Education/Counseling: Diagnosis, Treatment, Prognosis Family Education/Counseling: Diagnosis, Treatment, No Family Present Departure 1 Departure Time of Disposition: 19:24 Impression: Primary Impression: Esophageal varices with bleeding Disposition: HOME / SELF CARE / HOMELESS Condition: Stable Additional Instructions: Advised patient to follow up with primary care provider and regional ehs manager for continued management of his liver related concerns. Discharged With: Self, Friend Critical Care Note Critical Care Time?: No Stability Stability form required: No Heart Score Heart Score: Heart Score Response (Comments) Value History N/A 0 EKG N/A 0 Age N/A 0 Risk Factors N/A 0 Troponin N/A 0 Total 0 I personally scribed for BENNY SHOOK PAC ([email or web address]) on 05/10/24 at 15:48. Iman ctronically submitted by Keren Govea ([email or web address]). BENNY SHOOK PAC May 10, 2024 15:48
[2024-05-10 16:05] LABS: Basophils # (auto) 0.1 10 ^3/uL (0-0.2); Eosinophils # (auto) 0.5 10 ^3/uL (0-0.8); Eosinophils % (auto) 5.9 % (0.0-7.0); Hematocrit 39.9 % (41.0-53.0); Hemoglobin 14.2 g/dL (13.5-17.5); Lymphocytes % (auto) 11.5 % (10.0-50.0); Mean Corpuscular Hemoglobin 30.5 pg (28.0-32.0); Mean Corpuscular Hgb Conc. 35.7 g/dL (32.0-36.0); Mean Corpuscular Volume 85.4 fL (80.0-100.0); Monocytes # (auto) 0.8 10 ^3/uL (0-1.3); Monocytes % (auto) 8.8 % (0.0-12.0); Neutrophils # (auto) 6.2 10 ^3/uL (1.6-8.6); Neutrophils % (auto) 72.8 % (37.0-80.0); Nucleated Red Blood Cells % 0.1 %; Platelet Count (auto) 192 10^3/uL (140-450); Red Blood Cells 4.67 10^6/uL (4.5-5.90); Red Cell Distribution Width 13.9 % (11.8-14.3); White Blood Cell 8.5 10^3/uL (4.4-10.8)
[2024-05-10 16:28] LABS: Alanine Aminotransferase 26 U/L (7-40); Albumin 4.7 g/dL (3.2-4.8); Alkaline Phosphatase 87 U/L (46-116); Anion Gap 7 (5-15); Aspartate Aminotransferase 18 U/L (13-40); BUN/Creatinine Ratio 18.3 (10.0-20.0); Blood Urea Nitrogen 23 mg/dL (9-23); Carbon Dioxide 28 mmol/L (20-31); Chloride 109 mmol/L (98-107); Glucose 149 mg/dL (74-106); Potassium 4.3 mmol/L (3.5-5.1); Sodium 144 mmol/L (136-145)
[2024-05-10 16:29] LABS: Bilirubin, Total 0.6 mg/dL (0.2-1.0); Total Protein 7.1 g/dL (5.7-8.2)
[2024-05-10] MEDS: IOHEXOL 300 MG/ML 100ML BOTTLE IJ ONE (18:22)
--- NOTE | 2024-05-10 19:10 | DVH ---
Exam: CT CT CHEST/AB/PL W CON- IV ONLY History: Esophageal varices, GI bleed Comparison Study: None available at time of dictation. Technique: Multidetector spiral CT of the chest, abdomen and pelvis was performed from lower neck to pubic symphysis. Intravenous contrast was administered during this examination. Portal venous imag ing was obtained. Axial, coronal and sagittal multiplanar reformats were performed by the technologis t on a separate workstation. Radiation Dose : 1. Chest/Abdomen/Pelvis: CTDIvol 18 mGy, DLP 1226 mGy*cm. Findings: Lower neck: Within normal limits Lungs: Within normal limits Heart/Vascular Structures: Within normal limits Lymph Nodes: No adenopathy Pleura: Within normal limits Liver: The liver is normal in size. No focal lesions. Normal hepatic vascular enhancement. Gallbladder and Biliary Tree: Gallbladder is surgically absent. Spleen: Unremarkable Pancreas: Punctate calcification of the pancreatic tail likely sequelae of chronic pancreatitis. Adrenal Glands: Unremarkable Kidneys: Multiple bilateral nonobstructing renal stones measuring up to 8 mm. There is a 9 mm stone i n the right renal pelvis associated peripelvic fat stranding and wall thickening. No evidence of hyd ronephrosis.. Subcentimeter cyst arising from the right kidney inferior pole. Bladder: Unremarkable Bowel: The stomach is grossly normal in appearance. Small bowel and colon are normal in caliber and d istribution. Normal appendix is visualized in the right lower quadrant without findings of appendici tis. Sigmoid colon diverticulosis. Ascites: Absent Lymphadenopathy: No mesenteric, retroperitoneal or periportal lymphadenopathy. Abdominal Wall and Mesentery: Unremarkable. Vasculature: The visualized abdominal aorta is normal in size and caliber. Abdominal and pelvic vess els demonstrate normal enhancement. Paraesophageal, perigastric, and perisplenic varices. Pelvic Organs: Moderate prostatomegaly. Musculoskeletal: No aggressive focal bony lesions, acute fractures or dislocation. Status post total left shoulder arthroplasty. IMPRESSION: Minimal periesophageal, perigastric, and perisplenic varices. Multiple bilateral nonobstructing renal stones with a 9 mm stone in the right renal pelvis with assoc iated peripelvic fat stranding and wall thickening. Correlate for possible chronic process with under lying infection not excluded. No hydronephrosis. Moderate prostatomegaly. Correlation with PSA recommended. Ancillary findings as described above.
[2024-05-10 20:04] VITALS: BP 154/94; PULSE 68; RESP 19; TEMP 97.5; O2SAT 96
== END 2024-05-10 20:06 | disposition home or self-care (01) ==
LOC: ER 15:01
DX: I85.01 Esophageal varices with bleeding (principal); K21.9 Gastro-esophageal reflux disease without esophagitis; Z98.890 Other specified postprocedural states; Z94.4 Liver transplant status; Z79.899 Other long term (current) drug therapy
CPT/HCPCS: 36415; 71260; 74177; 80053; 85025; 99285; Q9967

== ENCOUNTER → 2024-05-11 | Outpatient (CLI) | payer OTHER ==
[2024-05-11 13:58] LABS: Urine Bacteria None Seen /hpf (None Seen)
[2024-05-11 14:10] LABS: Urine Blood 3+ /uL (Negative); Urine Clarity Clear (Clear); Urine Color Yellow (Yellow); Urine Mucus FEW (None Seen); Urine Protein, UAD 1+ (Negative); Urine Specific Gravity 1.031 (1.001-1.035); Urine Urobilinogen Normal (Negative); Urine WBC 29 /hpf (0 - 3); Urine pH 5.5 (5.0-9.0)
[2024-05-11 14:13] LABS: Basophils # (auto) 0.1 10 ^3/uL (0-0.2); Eosinophils # (auto) 0.4 10 ^3/uL (0-0.8); Eosinophils % (auto) 4.2 % (0.0-7.0); Hematocrit 38.8 % (41.0-53.0); Hemoglobin 13.4 g/dL (13.5-17.5); Lymphocytes % (auto) 9.7 % (10.0-50.0); Mean Corpuscular Hemoglobin 29.6 pg (28.0-32.0); Mean Corpuscular Hgb Conc. 34.6 g/dL (32.0-36.0); Mean Corpuscular Volume 85.6 fL (80.0-100.0); Monocytes # (auto) 0.8 10 ^3/uL (0-1.3); Monocytes % (auto) 7.7 % (0.0-12.0); Neutrophils # (auto) 8.1 10 ^3/uL (1.6-8.6); Neutrophils % (auto) 77.4 % (37.0-80.0); Platelet Count (auto) 176 10^3/uL (140-450); Red Blood Cells 4.53 10^6/uL (4.5-5.90); Red Cell Distribution Width 14.3 % (11.8-14.3); White Blood Cell 10.4 10^3/uL (4.4-10.8)
[2024-05-11 14:36] LABS: Creatinine, Urine 188.29 mg/dL (30.0-125.0)
[2024-05-11 14:39] LABS: Alanine Aminotransferase 25 U/L (7-40); Albumin 4.6 g/dL (3.2-4.8); Alkaline Phosphatase 87 U/L (46-116); Anion Gap 5 (5-15); Aspartate Aminotransferase 17 U/L (13-40); BUN/Creatinine Ratio 22.2 (10.0-20.0); Bilirubin, Total 0.9 mg/dL (0.2-1.0); Blood Urea Nitrogen 24 mg/dL (9-23); Calcium 9.9 mg/dL (8.7-10.4); Carbon Dioxide 28 mmol/L (20-31); Chloride 108 mmol/L (98-107); Cholesterol 140 mg/dL (< 200); Glucose 103 mg/dL (74-106); HDL Cholesterol 44 mg/dL (40-59); LDL Cholesterol 75 mg/dL (< 100); Potassium 4.2 mmol/L (3.5-5.1); Sodium 141 mmol/L (136-145); Total Protein 6.9 g/dL (5.7-8.2); Triglycerides 163 mg/dL (< 150)
== END | disposition home or self-care (01) ==
LOC: LAB 13:49
PROVIDERS: ATTEND Internal Medicine
DX: Z00.01 Encounter for general adult medical examination with abnormal findings (principal); E11.42 Type 2 diabetes mellitus with diabetic polyneuropathy; K76.6 Portal hypertension; K70.30 Alcoholic cirrhosis of liver without ascites
CPT/HCPCS: 36415; 80053; 80061; 81001; 82043; 82570; 83036; 84439; 84443; 85025

== ENCOUNTER → 2024-07-16 | Outpatient (CLI) | payer OTHER ==
[2024-07-16 09:44] LABS: Urine Bacteria None Seen /hpf (None Seen)
[2024-07-16 10:40] LABS: Basophils # (auto) 0.1 10 ^3/uL (0-0.2); Eosinophils # (auto) 0.5 10 ^3/uL (0-0.8); Eosinophils % (auto) 5.4 % (0.0-7.0); Hematocrit 42.8 % (41.0-53.0); Hemoglobin 14.5 g/dL (13.5-17.5); Lymphocytes # (auto) 0.9 10 ^3/uL (0.4-5.4); Lymphocytes % (auto) 10.6 % (10.0-50.0); Mean Corpuscular Hemoglobin 28.2 pg (28.0-32.0); Mean Corpuscular Hgb Conc. 33.9 g/dL (32.0-36.0); Mean Corpuscular Volume 83.2 fL (80.0-100.0); Monocytes # (auto) 0.6 10 ^3/uL (0-1.3); Monocytes % (auto) 7.2 % (0.0-12.0); Neutrophils # (auto) 6.6 10 ^3/uL (1.6-8.6); Neutrophils % (auto) 75.8 % (37.0-80.0); Nucleated Red Blood Cells % 0.1 %; Platelet Count (auto) 179 10^3/uL (140-450); Red Blood Cells 5.14 10^6/uL (4.5-5.90); Red Cell Distribution Width 14.8 % (11.8-14.3); White Blood Cell 8.7 10^3/uL (4.4-10.8)
[2024-07-16 10:57] LABS: Alanine Aminotransferase 23 U/L (7-40); Albumin 4.8 g/dL (3.2-4.8); Alkaline Phosphatase 83 U/L (46-116); Anion Gap 8 (5-15); Aspartate Aminotransferase 19 U/L (13-40); Calcium 10.2 mg/dL (8.7-10.4); Carbon Dioxide 25 mmol/L (20-31); Cholesterol 166 mg/dL (< 200); HDL Cholesterol 47 mg/dL (40-59); Potassium 4.6 mmol/L (3.5-5.1); Sodium 141 mmol/L (136-145)
[2024-07-16 10:58] LABS: Bilirubin, Total 0.5 mg/dL (0.2-1.0); Total Protein 7.1 g/dL (5.7-8.2)
[2024-07-16 11:00] LABS: Blood Urea Nitrogen 24 mg/dL (9-23); Chloride 108 mmol/L (98-107); Glucose 114 mg/dL (74-106); LDL Cholesterol 102 mg/dL (< 100); Triglycerides 154 mg/dL (< 150)
[2024-07-16 11:15] LABS: Urine Blood 3+ /uL (Negative); Urine Clarity Turbid (Clear); Urine Color Light-Yellow (Yellow); Urine Hyaline Cast FEW /lpf (0 - 2); Urine Mucus FEW (None Seen); Urine Protein, UAD TRACE (Negative); Urine Specific Gravity 1.018 (1.001-1.035); Urine Squamous Epithelial Cell None Seen /hpf (<5); Urine Urobilinogen Normal (Negative); Urine WBC 15 /hpf (0 - 3)
[2024-07-16 11:21] LABS: Creatinine, Urine 123.74 mg/dL (30.0-125.0)
== END | disposition home or self-care (01) ==
LOC: LAB 09:16
PROVIDERS: ATTEND Internal Medicine
DX: E11.42 Type 2 diabetes mellitus with diabetic polyneuropathy (principal); C61 Malignant neoplasm of prostate; K76.6 Portal hypertension; R74.8 Abnormal levels of other serum enzymes; Z86.19 Personal history of other infectious and parasitic diseases; E11.69 Type 2 diabetes mellitus with other specified complication
CPT/HCPCS: 36415; 80053; 80061; 81001; 82043; 82570; 83036; 84439; 84443; 85025

== ENCOUNTER 2024-12-13 09:24 | Outpatient (CLI) | payer OTHER ==
[2024-12-13 09:44] LABS: Basophils # (auto) 0.1 10 ^3/uL (0-0.2); Basophils % (auto) 1.2 % (0.0-2.0); Eosinophils # (auto) 0.7 10 ^3/uL (0-0.8); Hematocrit 41.2 % (41.0-53.0); Lymphocytes # (auto) 0.9 10 ^3/uL (0.4-5.4); Lymphocytes % (auto) 11.5 % (10.0-50.0); Mean Corpuscular Hemoglobin 27.4 pg (28.0-32.0); Mean Corpuscular Volume 80.4 fL (80.0-100.0); Monocytes # (auto) 0.8 10 ^3/uL (0-1.3); Monocytes % (auto) 9.9 % (0.0-12.0); Neutrophils # (auto) 5.7 10 ^3/uL (1.6-8.6); Neutrophils % (auto) 69.4 % (37.0-80.0); Nucleated Red Blood Cells % 0.1 %; Platelet Count (auto) 178 10^3/uL (140-450); Red Blood Cells 5.12 10^6/uL (4.5-5.90); Red Cell Distribution Width 15.7 % (11.8-14.3); White Blood Cell 8.2 10^3/uL (4.4-10.8)
[2024-12-13 11:31] LABS: Albumin 4.8 g/dL (3.2-4.8); Alkaline Phosphatase 77 U/L (46-116); Anion Gap 12 (5-15); Aspartate Aminotransferase 33 U/L (0-34); Calcium 9.3 mg/dL (8.7-10.4); Carbon Dioxide 23 mmol/L (20-31); Glucose 103 mg/dL (74-106); Potassium 4.4 mmol/L (3.5-5.1); Sodium 144 mmol/L (136-145); Total Protein 6.9 g/dL (5.7-8.2)
[2024-12-13 11:32] LABS: Bilirubin, Total 0.7 mg/dL (0.2-1.0)
[2024-12-13 11:34] LABS: Alanine Aminotransferase 43 U/L (7-40); Blood Urea Nitrogen 26 mg/dL (9-23); Chloride 109 mmol/L (98-107)
[2024-12-14 08:07] LABS: PSA Free 0.76 ng/mL; Prostate Specific Antigen 6.8 ng/mL (0.0-4.0)
== END 2024-12-13 17:00 | disposition home or self-care (01) ==
LOC: LAB 09:24
PROVIDERS: ATTEND Internal Medicine
DX: C61 Malignant neoplasm of prostate (principal); I10 Essential (primary) hypertension; E11.42 Type 2 diabetes mellitus with diabetic polyneuropathy; K76.9 Liver disease, unspecified; Z92.25 Personal history of immunosuppression therapy
CPT/HCPCS: 36415; 80053; 83615; 84153; 84154; 85025

== ENCOUNTER → 2025-01-09 | Outpatient (CLI) | payer OTHER ==
[2025-01-09 14:56] LABS: Hematocrit 41.6 % (41.0-53.0); Hemoglobin 14.2 g/dL (13.5-17.5); Mean Corpuscular Hemoglobin 27.4 pg (28.0-32.0); Mean Corpuscular Volume 80.2 fL (80.0-100.0); Nucleated Red Blood Cells % 0.0 %
[2025-01-09 15:16] LABS: Total Iron Binding Capacity 349.0 ug/dL (250-425)
[2025-01-09 15:21] LABS: Iron 47.0 ug/dL (65-175)
== END | disposition home or self-care (01) ==
LOC: LAB 14:23
PROVIDERS: ATTEND Internal Medicine Hematology & Oncology
DX: C61 Malignant neoplasm of prostate (principal); I10 Essential (primary) hypertension; E11.42 Type 2 diabetes mellitus with diabetic polyneuropathy; E61.1 Iron deficiency; K76.9 Liver disease, unspecified; Z92.25 Personal history of immunosuppression therapy
CPT/HCPCS: 36415; 82728; 83540; 83550; 85025